=== PATIENT | female | born 1960 | race Caucasian/White ===

== ENCOUNTER → 2022-04-06 | Outpatient (CLI) | payer BC ==
[~2022-04-06] MED LIST: HYDROCODON-ACE1 EAC9 PO; PROAIR DIGIHAL90 MCG INH; TRELEGY ELLIPT1 EACH INH
== END ==
LOC: MAMMO 11:34
PROVIDERS: ATTEND Internal Medicine
DX: Z12.31 Encounter for screening mammogram for malignant neoplasm of breast (principal)
CPT/HCPCS: 77067